=== PATIENT | male | born 1975 | race African-American/Black ===

== ENCOUNTER → 2017-11-12 | Outpatient (CLI) | payer BC | END | disposition home or self-care (01) | LOC: KCIC CT 08:24 | DX: Z01.818 Encounter for other preprocedural examination (principal); S42.92XK Fracture of left shoulder girdle, part unspecified, subsequent encounter for fracture with nonunion; M19.012 Primary osteoarthritis, left shoulder; X58.XXXD Exposure to other specified factors, subsequent encounter | CPT/HCPCS: 73200 ==

== ENCOUNTER 2018-01-03 12:43 | Emergency (ER) | payer BC ==
[2018-01-03 13:32] LABS: ANION GAP 22 (6-14); BLOOD UREA NITROGEN 18 mg/dL (8-26); CALCIUM 8.9 mg/dL (8.5-10.1); CARBON DIOXIDE 18 mmol/L (21-32); CHLORIDE 100 mmol/L (98-107); CREATININE 1.3 mg/dL (0.7-1.3); GLUCOSE 157 mg/dL (70-99); POTASSIUM 4.2 mmol/L (3.5-5.1); SODIUM 140 mmol/L (136-145)
[2018-01-03] MEDS: IV NORMAL SALINE 1000ML BAG 1,000 ML IV ×2 (13:33→13:48)
[2018-01-03 13:38] LABS: MAGNESIUM 2.2 mg/dL (1.8-2.4)
[2018-01-03 13:43] LABS: PHENOBARB < 1.0 mcg/mL (15.0-40.0); PHENY < 0.4 mcg/mL (10.0-20.0)
[2018-01-03] MEDS: oxyCODONE IR 5 MG TABLET PO (13:48)
[2018-01-03] MEDS: PHENobarbital 32.4 MG TABLET. PO (13:59)
[2018-01-03] MEDS: PHENYTOIN SODIUM EXTENDED 100 MG CAPSULE PO ×2 (14:00→15:03)
[2018-01-03 14:09] LABS: ADD MAN DIFF? NO
[2018-01-03 14:13] LABS: BASO % 0 % (0-3); EOS # 0.1 x10^3/uL (0.0-0.7); EOS % 1 % (0-3); HEMATOCRIT 33.1 % (39.0-53.0); HEMOGLOBIN 10.9 g/dL (13.0-17.5); LYMPH # 2.5 x10^3/uL (1.0-4.8); LYMPH % 27 % (24-48); MEAN CORPUSCULAR HEMOGLOBIN 28 pg (25-35); MEAN CORPUSCULAR HGB CONC 33 g/dL (31-37); MEAN CORPUSCULAR VOLUME 85 fL (79-100); MONO # 0.5 x10^3/uL (0.0-1.1); MONO % 5 % (0-9); NEUT # 6.2 x10^3uL (1.8-7.7); NEUT % 67 % (31-73); PLATELET COUNT 388 x10^3/uL (140-400); RED BLOOD COUNT 3.91 x10^6/uL (4.30-5.70); RED CELL DISTRIBUTION WIDTH 13.3 % (11.5-14.5); WHITE BLOOD COUNT 9.3 x10^3/uL (4.0-11.0)
[2018-01-03] MEDS: ONDANSETRON PF 4 MG/2 ML VIAL. IV (15:02)
== END 2018-01-03 17:03 | disposition home or self-care (01) ==
LOC: ER 12:43
DX: R56.9 Unspecified convulsions (principal); R00.0 Tachycardia, unspecified
CPT/HCPCS: 36415; 80048; 80184; 80185; 83735; 85025; 96374; 99284; J2405; J7030